=== PATIENT | female | born 1945 | race Caucasian/White ===

== ENCOUNTER 2017-03-12 11:50 | Emergency (ER) | payer MEDICARE, OTHER ==
[2017-03-12] MEDS ORDERED: HYDROMORPHONE HCL INJ/PF 2 MG/ML AMPULE IV ONE (13:12)
--- NOTE | 2017-03-12 13:17 | ER Document Report ---
ED Medical Screen (RME) - General Mode of Arrival: Ambulatory Information source: Patient TRAVEL OUTSIDE OF THE [place] IN LAST 30 DAYS: No - HPI Patient complains to provider of: abdominal pain Associated Symptoms: Other - See above <CRYSTAL HUTCHISON - Last Filed: 03/12/17 13:12> <PENNY GAXIOLA - Last Filed: 03/12/17 21:16> - General Chief Complaint: Abdominal Pain Stated Complaint: RIGHT SIDE PAIN Time Seen by Provider: 03/12/17 13:08 Notes: Patient presents with complaints of RLQ abdominal pain. Pt states that the pain began a month ago and has consistently worsened to the point that today she had to come in. Patient states she has diarrhea onset 3 days ago. Denies vomiting, blood in stool, and fever. Patient's last meal was this morning. Patient still has her appendix. (CRYSTAL HUTCHISON) - Related Data Allergies/Adverse Reactions: No Known Drug Allergies Allergy (Verified 03/12/17 12:49) Past Medical History - General Information source: Patient - Social History Cigarette use (# per day): No Chew tobacco use (# tins/day): No Frequency of alcohol use: None Drug Abuse: None Family history: Reviewed & Not Pertinent - Past Medical History Cardiac Medical History: Reports: Hx Coronary Artery Disease, Hx Hypercholesterolemia, Hx Hypertension Pulmonary Medical History: Reports: Hx Asthma Neurological Medical History: Reports: Hx Migraine Endocrine Medical History: Reports: Hx Diabetes Mellitus Type 2 GI Medical History: Reports: Hx Ulcer Musculoskeltal Medical History: Reports Hx Arthritis, Reports Hx Musculoskeletal Deformity, Reports Hx Musculoskeletal Trauma Psychiatric Medical History: Reports: Hx Anxiety Past Surgical History: Reports: Hx Genitourinary Surgery - bladder sling, Hx Oral Surgery, Hx Orthopedic Surgery - lt hip total replacement, Hx Urinary Tract Surgery - bladder sling - Immunizations Immunizations up to date: Yes Hx Diphtheria, Pertussis, Tetanus Vaccination: Yes <CRYSTAL HUTCHISON - Last Filed: 03/12/17 13:12> Review of Systems - Review of Systems Constitutional: denies: Fever EENT: No symptoms reported Cardiovascular: No symptoms reported Respiratory: No symptoms reported Gastrointestinal: See HPI, Abdominal pain, Diarrhea. denies: Vomiting Genitourinary: No symptoms reported Female Genitourinary: No symptoms reported Musculoskeletal: No symptoms reported Skin: No symptoms reported Hematologic/Lymphatic: No symptoms reported Neurological/Psychological: No symptoms reported -: Yes All other systems reviewed and negative <HUTCHISONCRYSTAL - Last Filed: 03/12/17 13:12> Physical Exam - Vital signs Interpretation: Normal - Respiratory Respiratory status: No respiratory distress - Cardiovascular Rhythm: Regular - Abdominal Tenderness: Tender - RLQ tender to palpation <CRYSTAL HUTCHISON - Last Filed: 03/12/17 13:12> Course - Laboratory Result Diagrams: 03/12/17 13:55 03/12/17 13:55 <PENNY GAXIOLA - Last Filed: 03/12/17 21:16> - Vital Signs Vital signs: Temp Pulse Resp BP Pulse Ox 97.5 F 56 L 16 143/55 H 95 03/12/17 16:59 03/12/17 16:59 03/12/17 16:59 03/12/17 16:59 03/12/17 16:59 - Laboratory Laboratory results interpreted by me: 03/12/17 13:55 WBC 11.4 H RDW 14.1 H Seg Neuts % (Manual) 28 L Band Neutrophils % 1 L Lymphocytes % (Manual) 47 H Abs Lymphs (Manual) 7.5 H Doctor's Discharge <CRYSTAL HUTCHISON - Last Filed: 03/12/17 13:12> <PENNY GAXIOLA - Last Filed: 03/12/17 21:16> - Discharge Clinical Impression: Abdominal pain Qualifiers: Abdominal location: right lower quadrant Qualified Code(s): R10.31 - Right lower quadrant pain Condition: Stable Disposition: HOME, SELF-CARE Additional Instructions: ABDOMINAL PAIN: There are many causes of abdominal pain. Pain can mean a serious problem requiring surgery (such as appendicitis). It can also be an innocent problem that goes away on its own (such as a viral infection). Often, time must pass to determine the cause of pain. The physician does not feel that hospitalization is necessary, at present. Things may change within the next 24 hours. Call the doctor or come back for re- examination if any problems occur, such as: (1) Pain that becomes more severe, steady, or becomes concentrated in one specific area. Also, pain that is more severe with movement or coughing. (2) Vomiting that persists or becomes more frequent. (3) Blood in the vomitus, urine, or bowel movements. Blood in the stool may have a tarry or black appearance. (4) Shaking chills or fever greater than 100 degrees F. (5) The abdomen becomes more distended or swollen. (6) Bowel movements cease. (7) Failure to improve as expected. NORMAL EXAM AND WORKUP: At this time, your examination and workup show no significant abnormality. No significant abnormal physical findings are noted. All laboratory, EKG, and imaging (x-ray, CT scans, ultrasound) studies that were ordered show no significant abnormality. Although your examination and all studies that were ordered showed no significant abnormal finding, there are no examinations and no studies that are 100% accurate. There is always the possibility that some abnormality could exist and not be detected with physical examination or within the limits and capabilities of laboratory and other studies. You should return or follow up as you were instructed on your visit today for further evaluation if your symptoms do not resolve. Your CT scan of your abdomen does not show your appendix. There are no inflammatory changes seen either. We do not think that you have appendicitis. You do have some gas in your lower right colon and the ascending colon to the liver which might be contributing to the pain you're experiencing. CONSTIPATION: Constipation is a common problem. It is especially likely as you get older. Constipation is a common cause of abdominal pain, but sometimes causes no symptoms at all. Causes of constipation include certain medications, dehydration, diets, inactivity, and low-fiber intake. Rarely, it can be a symptom of underlying disease. The physician has evaluated you for this. Avoid constipation by eating a diet high in fiber, fruits, and vegetables. Drink plenty of liquids. Get regular exercise. If possible, avoid constipating medicines like narcotic pain medication. Some vitamin tablets can cause constipation. Stool softeners may be needed for difficult cases. An excellent stool softener is Konsyl which is available at [employer], and [employer] drug store. Just add a teaspoon to a glass of pineapple or orange juice daily or twice a day if needed. Laxatives are useful for occasional constipation. You should use them only when necessary. Too-frequent use can make your bowels dependent on them. Some over the counter laxatives available without prescription are: Milk of Magnesia, 1-2 tablespoons twice a day Dulcolax, 5 mg pill or 10 mg suppository. Citrate of Magnesia, 4-5 ounces a day for a day or two For acute constipation, Fleet's Enemas and Dulcolax suppositories are helpful. Chronic, tile layer helper use of laxatives or enemas is not a good idea. Your bowel may become dependant on them. You do not need to have a bowel movement every day. Many people do fine with a bowel movement every three or four days. You should call your doctor or return for re-evaluation if you pass blood in the stool, or if you develop fever or increasing abdominal pain. BULK LAXATIVES: Bulk laxatives make the stool softer and bulkier. They're useful for preventing constipation. You can choose between psyllium, methylcellulose, and polycarbophil. They are available without a prescription. Psyllium brand names include Konsyl, Metamucil, Perdiem, Effer-Syllium and Hydrocil. It's available as powder, flavored drink powder, or chewable. The usual dose of psyllium powder is one heaping teaspoon in water each morning, increasing to twice a day if needed. [place] juice can disguise the slightly grainy texture. Methylcellulose is marketed as Citrucel and other brands. The average dose is two grams in a cup of water one to three times a day. Polycarbophil is marketed as Fiber-Con. Take two tablets with a cup of water one to three times a day. LAXATIVE: A laxative agent has been prescribed for your condition. This should result in passage of stool within 12 hours. Some mild intestinal cramping is common as the hard stool begins to move. You may have loose or runny stools for a short time. Contact your doctor if there is severe cramping, vomiting, or passage of blood. Return for further care if this medicine fails to improve your condition. FOLLOW-UP CARE: If you have been referred to a physician for follow-up care, call the physician s office for an appointment as you were instructed or within the next two days. If you experience worsening or a significant change in your symptoms, notify the physician immediately or return to the Emergency Department at any time for re-evaluation. I spoke with Dr. Mcgill and he will follow up with you about your pain to see if there is any other studies that can be ordered to try to find her what's causing the pain. Referrals: TEENA MCGILL MD [Primary Care Provider] - Follow up as needed Scribe Documentation - Scribe Written by Heber:: heber Hopkins, 03/12/17, 1317 acting as scribe for :: Sterling <CRYSTAL HUTCHISON - Last Filed: 03/12/17 13:12>
[2017-03-12 14:34] LABS: HEMATOCRIT 41.4 % (36.0-47.0); HEMOGLOBIN 13.4 g/dL (12.0-15.5); HGB HCT DIFFERENCE -1.2; MEAN CORPUSCULAR HEMOGLOBIN 30.1 pg (27.0-33.4); MEAN CORPUSCULAR HGB CONC 32.3 g/dL (32.0-36.0); MEAN CORPUSCULAR VOLUME 93 fl (80-97); RED BLOOD COUNT 4.45 10^6/uL (3.72-5.28); RED CELL DISTRIBUTION WIDTH 14.1 % (11.5-14.0); WHITE BLOOD COUNT 11.4 10^3/uL (4.0-10.5)
[2017-03-12 14:45] LABS: APPEARANCE,URINE CLEAR; BILIRUBIN,URINE NEGATIVE (NEGATIVE); GLUCOSE, URINE NEGATIVE (NEGATIVE); KETONES,URINE NEGATIVE (NEGATIVE); LEUKOCYTE ESTERASE,URINE NEGATIVE (NEGATIVE); NITRITE,URINE NEGATIVE (NEGATIVE); PROTEIN,URINE NEGATIVE (NEGATIVE); URINE SPECIFIC GRAVITY 1.009; UROBILINOGEN,URINE NEGATIVE mg/dL (<2.0)
[2017-03-12 14:46] LABS: ALANINE AMINOTRANSFERASE 27 U/L (9-52); ALBUMIN 4.6 g/dL (3.5-5.0); ALKALINE PHOSPHATASE 58 U/L (38-126); ANION GAP 11 (5-19); ASPARTATE AMINO TRANSFERASE 22 U/L (14-36); BILIRUBIN,DIRECT 0.4 mg/dL (0.0-0.4); BILIRUBIN,TOTAL 1.2 mg/dL (0.2-1.3); BLOOD UREA NITROGEN 14 mg/dL (7-20); CALCIUM 9.8 mg/dL (8.4-10.2); CARBON DIOXIDE 30 mmol/L (22-30); CHLORIDE 101 mmol/L (98-107); GLUCOSE 87 mg/dL (75-110); POTASSIUM 4.3 mmol/L (3.6-5.0); SODIUM 142.4 mmol/L (137-145); TOTAL PROTEIN 7.3 g/dL (6.3-8.2)
[2017-03-12 15:05] LABS: BAND NEUTROPHILS % (MANUAL) 1 % (3-5); BASOPHILS % (MANUAL) 0 % (0-2); EOSINOPHILS % (MANUAL) 2 % (0-6); LYMPHOCYTES % (MANUAL) 47 % (13-45); TOTAL CELLS COUNTED 100
[2017-03-12 15:06] LABS: OVALOCYTES SLIGHT; POIKILOCYTOSIS SLIGHT; POLYCHROMASIA SLIGHT
--- NOTE | 2017-03-12 16:52 | ER Document Report ---
ED GI/ - General Chief Complaint: Abdominal Pain Stated Complaint: RIGHT SIDE PAIN Time Seen by Provider: 03/12/17 13:08 Mode of Arrival: Ambulatory Notes: Patient is here because she's having pain in the right lower abdomen around to her back. She says this pain has been going on for the past 2 months. She says it's been getting worse and went to her private doctor's office today where she was very tender in the right lower quadrant and a center here to rule out possible appendicitis. Patient says her pain is constant and worse today. She's not had any nausea or vomiting. She's had a soft stool. No blood in her stools. She has noticed some burning with urination and frequently going to the bathroom to urinate. Has not noted any fever. Has had a hysterectomy but says she still has her appendix. TRAVEL OUTSIDE OF THE [place] IN LAST 30 DAYS: No - Related Data Allergies/Adverse Reactions: No Known Drug Allergies Allergy (Verified 03/12/17 12:49) Past Medical History - General Information source: Patient - Social History Smoking Status: Never Smoker Cigarette use (# per day): No Chew tobacco use (# tins/day): No Frequency of alcohol use: None Drug Abuse: None Family History: Reviewed & Not Pertinent, CAD, DM, Hyperlipidemia, Hypertension , Malignancy Patient has suicidal ideation: No Patient has homicidal ideation: No - Past Medical History Cardiac Medical History: Reports: Hx Coronary Artery Disease, Hx Hypercholesterolemia, Hx Hypertension Pulmonary Medical History: Reports: Hx Asthma Neurological Medical History: Reports: Hx Migraine Endocrine Medical History: Reports: Hx Diabetes Mellitus Type 2 GI Medical History: Reports: Hx Ulcer Musculoskeltal Medical History: Reports Hx Arthritis, Reports Hx Musculoskeletal Deformity, Reports Hx Musculoskeletal Trauma Psychiatric Medical History: Reports: Hx Anxiety Past Surgical History: Reports: Hx Genitourinary Surgery - bladder sling, Hx Oral Surgery, Hx Orthopedic Surgery - Bilateral hip total replacement, Hx Urinary Tract Surgery - bladder sling - Immunizations Immunizations up to date: Yes Hx Diphtheria, Pertussis, Tetanus Vaccination: Yes Hx Pneumococcal Vaccination: 09/02/15 Review of Systems - Review of Systems Notes: REVIEW OF SYSTEMS: CONSTITUTIONAL : Denies fever. EENT: Denies eye, ear, nose or mouth or throat pain or other symptoms. CARDIOVASCULAR: Denies chest pain. RESPIRATORY: Denies cough, chest congestion, or shortness of breath. GASTROINTESTINAL: See history of present illness. GENITOURINARY: Has urinary frequency and discomfort with urination, but no blood in urine. MUSCULOSKELETAL: Denies back or neck pain. Denies joint pain or swelling. SKIN: Denies rash or skin lesions. NEUROLOGICAL: Denies LOC or altered mental status. Denies headache. Denies sensory loss or motor deficits. ALL OTHER SYSTEMS REVIEWED AND NEGATIVE. Physical Exam - Vital signs Vitals: Temp Pulse Resp BP Pulse Ox 98.1 F 70 23 H 145/92 H 100 03/12/17 11:54 03/12/17 11:54 03/12/17 11:54 03/12/17 11:54 03/12/17 11:54 Interpretation: Normal - Notes Notes: PHYSICAL EXAMINATION: GENERAL: Well-appearing, in no acute distress. Vital signs are all essentially normal. Patient is much younger looking than her stated age of 72. HEAD: Atraumatic, normocephalic. EYES: Pupils equal round and reactive to light, extraocular movements intact. ENT: oropharynx clear without exudates. Moist mucous membranes. NECK: Normal range of motion, supple. LUNGS: Breath sounds clear and equal bilaterally. HEART: Regular rate and rhythm without murmurs. ABDOMEN: Soft, but very tender in the right lower quadrant and into the lateral right abdomen. Minimal right CVA percussion tenderness. No abdominal masses felt. No bruits heard. BACK: No tenderness throughout entire back. EXTREMITIES: Normal range of motion without pain. NEUROLOGICAL: Normal speech, normal gait. Normal sensory, motor, and reflex exams. Awake, alert, and oriented x3. Cranial nerves normal. PSYCH: Normal mood, normal affect. SKIN: Warm, dry, no rashes. Course - Vital Signs Vital signs: Temp Pulse Resp BP Pulse Ox 97.5 F 56 L 16 143/55 H 95 03/12/17 16:59 03/12/17 16:59 03/12/17 16:59 03/12/17 16:59 03/12/17 16:59 03/12/17 20:31 Blood work noted. Patient's predominance of lymphocytes noted. I called her primary care physician, Dr. Woods, and made him aware of the patient' s findings and told him I don't think she has appendicitis, even though she is tender in the right lower quadrant. Her total white count is hardly elevated and it is far predominated by lymphocytes. He agrees that he needs to follow that differential. He will follow her pains of as well. I've advised the patient that her findings do suggest some degree of constipation and have advised her on some means to try to move her bowels better. - Laboratory Result Diagrams: 03/12/17 13:55 03/12/17 13:55 Laboratory results interpreted by me: 03/12/17 13:55 WBC 11.4 H RDW 14.1 H Seg Neuts % (Manual) 28 L Band Neutrophils % 1 L Lymphocytes % (Manual) 47 H Abs Lymphs (Manual) 7.5 H - Diagnostic Test Radiology reviewed: Image reviewed, Reports reviewed - Patient's CT scan of the abdomen and pelvis with out contrast was unable to identify the appendix. There are no inflammatory changes noted in the right lower quadrant. There is a moderate amount of stool in the ascending colon and hepatic rupture. Discharge - Discharge Clinical Impression: Abdominal pain Qualifiers: Abdominal location: right lower quadrant Qualified Code(s): R10.31 - Right lower quadrant pain Condition: Stable Disposition: HOME, SELF-CARE Additional Instructions: ABDOMINAL PAIN: There are many causes of abdominal pain. Pain can mean a serious problem requiring surgery (such as appendicitis). It can also be an innocent problem that goes away on its own (such as a viral infection). Often, time must pass to determine the cause of pain. The physician does not feel that hospitalization is necessary, at present. Things may change within the next 24 hours. Call the doctor or come back for re- examination if any problems occur, such as: (1) Pain that becomes more severe, steady, or becomes concentrated in one specific area. Also, pain that is more severe with movement or coughing. (2) Vomiting that persists or becomes more frequent. (3) Blood in the vomitus, urine, or bowel movements. Blood in the stool may have a tarry or black appearance. (4) Shaking chills or fever greater than 100 degrees F. (5) The abdomen becomes more distended or swollen. (6) Bowel movements cease. (7) Failure to improve as expected. NORMAL EXAM AND WORKUP: At this time, your examination and workup show no significant abnormality. No significant abnormal physical findings are noted. All laboratory, EKG, and imaging (x-ray, CT scans, ultrasound) studies that were ordered show no significant abnormality. Although your examination and all studies that were ordered showed no significant abnormal finding, there are no examinations and no studies that are 100% accurate. There is always the possibility that some abnormality could exist and not be detected with physical examination or within the limits and capabilities of laboratory and other studies. You should return or follow up as you were instructed on your visit today for further evaluation if your symptoms do not resolve. Your CT scan of your abdomen does not show your appendix. There are no inflammatory changes seen either. We do not think that you have appendicitis. You do have some gas in your lower right colon and the ascending colon to the liver which might be contributing to the pain you're experiencing. CONSTIPATION: Constipation is a common problem. It is especially likely as you get older. Constipation is a common cause of abdominal pain, but sometimes causes no symptoms at all. Causes of constipation include certain medications, dehydration, diets, inactivity, and low-fiber intake. Rarely, it can be a symptom of underlying disease. The physician has evaluated you for this. Avoid constipation by eating a diet high in fiber, fruits, and vegetables. Drink plenty of liquids. Get regular exercise. If possible, avoid constipating medicines like narcotic pain medication. Some vitamin tablets can cause constipation. Stool softeners may be needed for difficult cases. An excellent stool softener is Konsyl which is available at [employer], [employer] drug store. Just add a teaspoon to a glass of pineapple or orange juice daily or twice a day if needed. Laxatives are useful for occasional constipation. You should use them only when necessary. Too-frequent use can make your bowels dependent on them. Some over the counter laxatives available without prescription are: Milk of Magnesia, 1-2 tablespoons twice a day Dulcolax, 5 mg pill or 10 mg suppository. Citrate of Magnesia, 4-5 ounces a day for a day or two For acute constipation, Fleet's Enemas and Dulcolax suppositories are helpful. Chronic, skilled nursing use of laxatives or enemas is not a good idea. Your bowel may become dependant on them. You do not need to have a bowel movement every day. Many people do fine with a bowel movement every three or four days. You should call your doctor or return for re-evaluation if you pass blood in the stool, or if you develop fever or increasing abdominal pain. BULK LAXATIVES: Bulk laxatives make the stool softer and bulkier. They're useful for preventing constipation. You can choose between psyllium, methylcellulose, and polycarbophil. They are available without a prescription. Psyllium brand names include Konsyl, Metamucil, Perdiem, Effer-Syllium and Hydrocil. It's available as powder, flavored drink powder, or chewable. The usual dose of psyllium powder is one heaping teaspoon in water each morning, increasing to twice a day if needed. Sharp juice can disguise the slightly grainy texture. Methylcellulose is marketed as Citrucel and other brands. The average dose is two grams in a cup of water one to three times a day. Polycarbophil is marketed as Fiber-Con. Take two tablets with a cup of water one to three times a day. LAXATIVE: A laxative agent has been prescribed for your condition. This should result in passage of stool within 12 hours. Some mild intestinal cramping is common as the hard stool begins to move. You may have loose or runny stools for a short time. Contact your doctor if there is severe cramping, vomiting, or passage of blood. Return for further care if this medicine fails to improve your condition. FOLLOW-UP CARE: If you have been referred to a physician for follow-up care, call the physician s office for an appointment as you were instructed or within the next two days. If you experience worsening or a significant change in your symptoms, notify the physician immediately or return to the Emergency Department at any time for re-evaluation. I spoke with Dr. Woods and he will follow up with you about your pain to see if there is any other studies that can be ordered to try to find her what's causing the pain. Referrals: TEENA WOODS MD [Primary Care Provider] - Follow up as needed
[2017-03-12 17:13] VITALS: BP 143/55
== END 2017-03-12 17:00 | disposition home or self-care (01) ==
LOC: ER 11:50
DX: R10.31 Right lower quadrant pain (principal)
CPT/HCPCS: 99284; 96374; 36415; 85025; 80053; 81001; 74177; J1170

== ENCOUNTER → 2017-04-23 | Outpatient (CLI) | payer MEDICARE, OTHER ==
[2017-04-23 09:47] LABS: Direct HDL 45 mg/dL (>40); MAGNESIUM 1.7 mg/dL (1.6-2.3); TRIGLYCERIDES 448 mg/dL (<150)
[2017-04-23 09:58] LABS: DIRECT LDL 77 mg/dL (<100)
== END ==
LOC: OD 08:00
PROVIDERS: ATTEND Internal Medicine Cardiovascular Disease
DX: E78.2 Mixed hyperlipidemia (principal); I10 Essential (primary) hypertension
CPT/HCPCS: 36415; 80061; 83735

== ENCOUNTER → 2017-05-27 | Outpatient (CLI) | payer MEDICARE, OTHER ==
--- NOTE | 2017-05-27 14:52 | WOMENS IMAGING REPORT ---
EXAM DESCRIPTION: BILAT SCREENING MAMMO W/CAD COMPLETED DATE/TIME: 05/27/2017 10:21 am REASON FOR STUDY: Z12.31, ROUTINE SCREENING MAMMO Z12.31 ENCNTR SCREEN MAMMOGRAM FOR MALIGNANT NEOP LASM OF MELISSA COMPARISON: 2009 to 2015 TECHNIQUE: Standard craniocaudal and mediolateral oblique views of each breast recorded using Y[employer]omarta l acquisition. LIMITATIONS: None. FINDINGS: No masses, calcifications or architectural distortion. No areas of suspicion. Read with the assistance of CAD. .[facility] - R2 Cenova Version 1.3 .[facility] Imaging - R2 Cenova Version 1.3 .[facility] - R2 Cenova Version 2.4 .[facility] [place] - R2 Cenova Version 2.4 .[facility]EDS AT THE [facility] - R2 Breakfast Supervisor Version 9.2 IMPRESSION: NORMAL MAMMOGRAM. BIRADS 1. BREAST DENSITY: c. The breasts are heterogeneously dense, which may obscure small masses. BIRAD: 1 NEGATIVE RECOMMENDATION: ROUTINE SCREENING COMMENT: The patient has been notified of the results by letter per SA requirements. Additional no tification policies are in place for contacting patient with suspicious or incomplete findings. Quality ID #[id number]: The [employer] recommends an annual screening mammogram for women aged 40 years or over. This facility utilizes a reminder system to ensure that all patients receive reminder letters, and/or direct phone calls for appointments. This includes reminders for routine scr eening mammograms, diagnostic mammograms, or other Breast Imaging Interventions when appropriate. Th is patient will be placed in the appropriate reminder system. The [employer] (ACR) has developed recommendations for screening MRI of the breast s in certain patient populations, to be used in conjunction with mammography. Breast MRI surveillanc e may be appropriate for women with more than 20% lifetime risk of developing breast cancer as deter mined by genetic testing, significant family history of the disease, or history of mantle radiation f or Hodgkins Disease. ACR Practice Guidelines 2008. TECHNICAL DOCUMENTATION: FINDING NUMBER: (1) ASSESSMENT: (1) JOB ID: [id number] [employer]- All Rights Reserved
== END ==
LOC: WI 09:46
PROVIDERS: ATTEND Internal Medicine
DX: Z12.31 Encounter for screening mammogram for malignant neoplasm of breast (principal)
CPT/HCPCS: 77067; G0202

== ENCOUNTER 2017-07-27 10:36 | Day surgery (SDC) | payer MEDICARE, OTHER ==
[~2017-07-27 10:36] MED LIST: PROPOFOL INJ 200 MG/20 ML VIAL IV ONE
--- NOTE | 2017-07-27 11:57 | Operative Report ---
Operative Report DATE OF SURGERY: 07/27/17 Operative Report: The risks, benefits and alternatives of the procedure including risks of bleeding, perforation requiring surgery are explained to the patient detail and informed consent was obtained. The patient was taken back to the endoscopy suite and placed in the left, lateral decubital position. A rectal examination is done which did not reveal any masses, tears or fissures. An Olympus videoscope was inserted into the patient's rectum. The scope was then carefully advanced all the way to the cecum. Cecum was identified by the usual anatomical landmarks including the ileocecal valve as well as the appendiceal office. Photodocumentation is obtained. Prep is good. Scope was then sequentially pulled back via the various segments of the colon including the ascending colon, hepatic flexure, transverse colon, splenic flexure, descending colon finding to the rectosigmoid portions of the colon. Retroflexion maneuvers performed. PREOPERATIVE DIAGNOSIS: Right lower quadrant discomfort, rule out ischemic colitis POSTOPERATIVE DIAGNOSIS: Normal colonoscopy, random right-sided colon biopsies obtained OPERATION: Colonoscopy with biopsy SURGEON: TIMOTHY STEWART ANESTHESIA: LMAC TISSUE REMOVED OR ALTERED: Mucosal specimens obtained. COMPLICATIONS: None. ESTIMATED BLOOD LOSS: None. INTRAOPERATIVE FINDINGS: No masses, AVMs, diverticulosis noted. PROCEDURE: Patient tolerated procedure well. No immediate postprocedure complications are noted. Patient discharged in good condition. Discharge date 07/27/2017. Discharge diet: Regular. Discharge activity: Regular. 2-3 week follow-up to discuss findings. Patient is instructed to call the office or proceed to the emergency room should there be any further problems or questions. We will wait on pathology.
[2017-07-27 12:13] VITALS: BP 136/65
== END 2017-07-27 12:35 | disposition home or self-care (01) ==
LOC: END 10:36
PROVIDERS: ATTEND Internal Medicine Gastroenterology
PROC: 0DBF8ZX Excision of Right Large Intestine, Via Natural or Artificial Opening Endoscopic, Diagnostic (ICD-10-PCS; principal; 2017-07-27 13:00)
DX: K52.9 Noninfective gastroenteritis and colitis, unspecified (principal); D50.9 Iron deficiency anemia, unspecified; E11.9 Type 2 diabetes mellitus without complications; I10 Essential (primary) hypertension; M19.90 Unspecified osteoarthritis, unspecified site; Z79.899 Other long term (current) drug therapy; Z79.84 Long term (current) use of oral hypoglycemic drugs; Z79.51 Long term (current) use of inhaled steroids
CPT/HCPCS: 45380; 82962; 88305 ×2; J2704; 810

== ENCOUNTER → 2017-11-30 | Outpatient (CLI) | payer MEDICARE, OTHER ==
--- NOTE | 2017-11-30 16:09 | RADIOLOGY REPORT (SQ) ---
EXAM DESCRIPTION: VOIDING CYSTOURETHROGRAM COMPLETED DATE/TIME: 11/30/2017 3:58 pm REASON FOR STUDY: R10.9 UNSPECIFIED ABDOMINAL PAIN L72.3 SEBACEOUS CYST R10.9 UNSPECIFIED ABDOMINA L PAIN COMPARISON: None. FLUOROSCOPY TIME: FLUORO TIME: 1 minutes 15 seconds 11 images saved to PACS. LIMITATIONS: None. 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 Urinary bladder catheterized with direct visual inspection using sterile technique. Bladder filled with approximately 350 ml of non-ionic contrast via gravity drip. FINDINGS: BLADDER: Normal in size and contour. No filling defects. URETHRA: Normal. No obstruction. LEFT URETER: No vesicoureteral reflux. RIGHT URETER: No vesicoureteral reflux. OTHER FINDINGS: No other abnormality noted in soft tissues or bone. POST VOID: Minimal contrast residual. OTHER: No other significant finding. IMPRESSION: Normal Voiding Cystourethrogram. COMMENT: Quality ID 145: Final reports for procedures using fluoroscopy that document radiation exp osure indices, or exposure time and number of fluorographic images (if radiation exposure indices are not available) TECHNICAL DOCUMENTATION: JOB ID: [id number] [employer]- All Rights Reserved
== END ==
LOC: RAD 15:41
PROVIDERS: ATTEND Urology
DX: R10.9 Unspecified abdominal pain (principal)
CPT/HCPCS: 74455

== ENCOUNTER → 2017-12-03 | Outpatient (CLI) | payer MEDICARE, OTHER ==
--- NOTE | 2017-12-03 09:16 | RADIOLOGY REPORT (SQ) ---
EXAM DESCRIPTION: CT ABD/PELVIS WITH IV ORAL COMPLETED DATE/TIME: 12/03/2017 8:58 am REASON FOR STUDY: UNSPECIFIED ABDOMINAL PAIN R10.9 UNSPECIFIED ABDOMINAL PAIN COMPARISON: PET-CT 08/03/2015 CT abdomen pelvis 12/21/2015, 03/12/2012 TECHNIQUE: CT scan of the abdomen and pelvis performed using helical scanning technique with dynamic intravenous contrast injection. Patient drank oral contrast. Images reviewed with lung, soft tissue , and bone windows. Reconstructed coronal and sagittal MPR images reviewed. Delayed images for evalua tion of the urinary system also acquired. All images stored on PACS. All CT scanners at this facility use dose modulation, iterative reconstruction, and/or weight based d osing when appropriate to reduce radiation dose to as low as reasonably achievable (ALARA). [facility]: Dose Right [facility]: CareDose [facility]: Dose Right [facility]: Teradose 4D [facility]: [employer] CONTRAST TYPE AND DOSE: contrast/concentration: Isovue 370.00 mg/ml; Total Contrast Delivered: 83.0 ml; Total Saline Delivered: 68.0 ml RENAL FUNCTION: Creatinine 0.7 RADIATION DOSE: CT Rad equipment meets quality standard of care and radiation dose reduction techniq ues were employed. CTDIvol: 8.5 - 9.3 mGy. DLP: 910 mGy-cm.. LIMITATIONS: Streak artifact over the pelvis from bilateral hip replacements FINDINGS: LOWER CHEST: No significant findings. No nodules or infiltrates. Small hiatal hernia LIVER: Normal size. No masses. No dilated ducts. SPLEEN: Normal size. No focal lesions. PANCREAS: No masses. No significant calcifications. No adjacent inflammation or peripancreatic fluid collections. Pancreatic duct not dilated. GALLBLADDER: No identified stones by CT criteria. No inflammatory changes to suggest cholecystitis. ADRENAL GLANDS: No significant masses or asymmetry. RIGHT KIDNEY AND URETER: No solid masses. No significant calcifications. No hydronephrosis or hyd roureter. LEFT KIDNEY AND URETER: No solid masses. No significant calcifications. No hydronephrosis or hydr oureter. AORTA AND VESSELS: No aneurysm. No dissection. Renal arteries, SMA, celiac without stenosis. RETROPERITONEUM: Small left para aortic lymph nodes are seen just inferior to the left renal vein, un changed from PET-CT 08/03/2015. These were non metabolic at that time. BOWEL AND PERITONEAL CAVITY: No masses or inflammatory changes. No free fluid or peritoneal masses. Oral contrast throughout the gastrointestinal tract without evidence of bowel obstruction APPENDIX: Not identified. There is streak artifact in the pelvis from bilateral hip replacements. PELVIS: Streak artifact from bilateral hip replacements. Post hysterectomy. No gross adenopathy or free fluid. Bladder not well seen. ABDOMINAL WALL: No masses. No hernias. BONES: Multilevel degenerative disc changes most pronounced at T12-L1 and L4-5. OTHER: No other significant finding. IMPRESSION: NO SIGNIFICANT OR ACUTE FINDING IN THE ABDOMEN OR PELVIS ON CT SCAN WITH IV CONTRAST. TECHNICAL DOCUMENTATION: JOB ID: [id number] Quality ID # [id number]: Final reports with documentation of one or more dose reduction techniques (e.g., Au tomated exposure control, adjustment of the mA and/or kV according to patient size, use of iterative reconstruction technique) 2010 [employer]- All Rights Reserved
== END ==
LOC: RAD 08:13
PROVIDERS: ATTEND Urology
DX: R10.9 Unspecified abdominal pain (principal)
CPT/HCPCS: 74177; 82565

== ENCOUNTER → 2017-12-11 | Outpatient (CLI) | payer MEDICARE, OTHER ==
[2017-12-11 09:44] LABS: ALANINE AMINOTRANSFERASE 26 U/L (9-52); ALBUMIN 4.5 g/dL (3.5-5.0); ALKALINE PHOSPHATASE 60 U/L (38-126); ANION GAP 10 (5-19); ASPARTATE AMINO TRANSFERASE 21 U/L (14-36); BILIRUBIN,DIRECT 0.3 mg/dL (0.0-0.4); BILIRUBIN,TOTAL 0.6 mg/dL (0.2-1.3); BLOOD UREA NITROGEN 14 mg/dL (7-20); CALCIUM 9.5 mg/dL (8.4-10.2); CARBON DIOXIDE 28 mmol/L (22-30); CHLORIDE 105 mmol/L (98-107); CHOLESTEROL 171.17 mg/dL (0-200); GLUCOSE 117 mg/dL (75-110); MAGNESIUM 1.9 mg/dL (1.6-2.3); POTASSIUM 4.7 mmol/L (3.6-5.0); TOTAL PROTEIN 6.9 g/dL (6.3-8.2); TRIGLYCERIDES 245 mg/dL (<150)
[2017-12-11 09:55] LABS: DIRECT LDL 83 mg/dL (<100)
== END ==
LOC: OD 08:31
PROVIDERS: ATTEND Internal Medicine Cardiovascular Disease
DX: E83.42 Hypomagnesemia (principal); E78.2 Mixed hyperlipidemia; I10 Essential (primary) hypertension; Z79.899 Other long term (current) drug therapy
CPT/HCPCS: 36415; 80048; 80061; 80076; 83735

== ENCOUNTER → 2018-06-03 | Outpatient (CLI) | payer MEDICARE, OTHER ==
--- NOTE | 2018-06-03 13:10 | WOMENS IMAGING REPORT ---
EXAM DESCRIPTION: 3D SCREENING MAMMO BILAT COMPLETED DATE/TIME: 06/03/2018 12:43 pm REASON FOR STUDY: SCREENING MAMMO Z12.31 ENCNTR SCREEN MAMMOGRAM FOR MALIGNANT NEOPLASM OF MELISSA COMPARISON: Multiple since 2008 TECHNIQUE: Standard craniocaudal and mediolateral oblique views of each breast recorded using digita l acquisition and breast tomosynthesis. LIMITATIONS: None. FINDINGS: No masses, calcifications or architectural distortion. No areas of suspicion. Read with the assistance of CAD. .[facility] - R2 Cenova Version 1.3 .[facility] - R2 Cenova Version 1.3 .[facility] - R2 Cenova Version 2.4 .[facility] - R2 Cenova Version 2.4 .[facility] - R2 [employer]er Version 9.2 IMPRESSION: NORMAL MAMMOGRAM. BIRADS 1. BREAST DENSITY: b. There are scattered areas of fibroglandular density. BIRAD: 1 NEGATIVE RECOMMENDATION: ROUTINE SCREENING Please continue yearly bilateral screening tomosynthesis in June 2019 COMMENT: The patient has been notified of the results by letter per MQSA requirements. Additional no tification policies are in place for contacting patient with suspicious or incomplete findings. Quality ID #225: The [employer] recommends an annual screening mammogram for women aged 40 years or over. This facility utilizes a reminder system to ensure that all patients receive reminder letters, and/or direct phone calls for appointments. This includes reminders for routine scr eening mammograms, diagnostic mammograms, or other Breast Imaging Interventions when appropriate. Th is patient will be placed in the appropriate reminder system. The [employer] (ACR) has developed recommendations for screening MRI of the breast s in certain patient populations, to be used in conjunction with mammography. Breast MRI surveillanc e may be appropriate for women with more than 20% lifetime risk of developing breast cancer as deter mined by genetic testing, significant family history of the disease, or history of mantle radiation f or Hodgkins Disease. ACR Practice Guidelines 2008. DBT Technology DBT is a type of tomographic mammography. With conventional mammography, overlapping breast tissue ma y make lesions difficult to detect, even with good compression. DBT uses an x-ray tube that rotates a round the breast, taking images at different angles. These images are then combined to create thin sl ices of the breast that the radiologist can view as a 3D reconstruction. The Fenergo unit can perform full-field digital mammograms (2D imaging); or DBT (3D imaging); or both, in a combination mode that quickly performs both the mammogram and the tomosynthesis scan while the breast is still compressed. PQRS 6045F: Fluoroscopic imaging is not utilized for breast tomosynthesis. TECHNICAL DOCUMENTATION: FINDING NUMBER: (1) ASSESSMENT: (1) JOB ID: [id number] [employer]- All Rights Reserved Reading location - IP/workstation name: [email or web address]
== END ==
LOC: WI 11:15
PROVIDERS: ATTEND Internal Medicine
DX: Z12.31 Encounter for screening mammogram for malignant neoplasm of breast (principal)
CPT/HCPCS: 77063; 77067

== ENCOUNTER → 2018-08-16 | Outpatient (CLI) | payer MEDICARE, OTHER ==
--- NOTE | 2018-08-16 11:51 | RADIOLOGY REPORT (SQ) ---
EXAM DESCRIPTION: CAROTID DOPPLER COMPLETED DATE/TIME: 08/16/2018 11:20 am REASON FOR STUDY: BRUIT R09.89 OTH SYMPTOMS AND SIGNS INVOLVING THE CIRC AND RESP SY COMPARISON: CT brain 10/03/2015 TECHNIQUE: Grayscale ultrasound, Doppler velocity and spectra, and color Doppler images acquired of the extra-cranial carotid and vertebral arteries. Images stored on PACS. LIMITATIONS: None. FINDINGS: RIGHT CAROTID CCA Velocities: Within normal limits. Peak systolic velocity 0.9 m/sec ICA Velocities Peak systolic 1.1 m/s. End diastolic 0.23 m/s. Proximal ICA/CCA peak systolic ratio normal. Spectra normal. No significant plaque. LEFT CAROTID CCA Velocities: Within normal limits. Peak systolic velocity 1.2 m/sec ICA Velocities Peak systolic 0.66 m/s. End diastolic 0.18 m/s. Proximal ICA/CCA peak systolic ratio normal. Spectra normal. No significant plaque. VERTEBRAL ARTERIES: Antegrade flow. Normal waveforms. SUBCLAVIAN ARTERIES: Not evaluated OTHER: No other significant finding. IMPRESSION: NO HEMODYNAMICALLY SIGNIFICANT STENOSIS. COMMENT: Quality ID #195: Velocity criteria are extrapolated from the diameter data as defined by t he Society of Radiologists in Ultrasound Consensus Conference. Radiology 2003: 229; 340-346. TECHNICAL DOCUMENTATION: JOB ID: [id number] [employer]- All Rights Reserved Reading location - IP/workstation name: [email or web address]
== END ==
LOC: SP 09:46
PROVIDERS: ATTEND Physician Assistant
DX: R09.89 Other specified symptoms and signs involving the circulatory and respiratory systems (principal)
CPT/HCPCS: 93880

== ENCOUNTER → 2018-12-15 | Outpatient (CLI) | payer MEDICARE, OTHER ==
[2018-12-15 09:16] LABS: ALANINE AMINOTRANSFERASE 38 U/L (9-52); ALBUMIN 4.7 g/dL (3.5-5.0); ALKALINE PHOSPHATASE 61 U/L (38-126); ANION GAP 9 (5-19); ASPARTATE AMINO TRANSFERASE 35 U/L (14-36); BILIRUBIN,DIRECT 0.2 mg/dL (0.0-0.4); BILIRUBIN,TOTAL 0.5 mg/dL (0.2-1.3); BLOOD UREA NITROGEN 15 mg/dL (7-20); CALCIUM 9.4 mg/dL (8.4-10.2); CARBON DIOXIDE 27 mmol/L (22-30); CHLORIDE 107 mmol/L (98-107); GLUCOSE 121 mg/dL (75-110); POTASSIUM 4.7 mmol/L (3.6-5.0); SODIUM 142.6 mmol/L (137-145); TOTAL PROTEIN 6.7 g/dL (6.3-8.2); TRIGLYCERIDES 179 mg/dL (<150)
[2018-12-15 09:17] LABS: CHOLESTEROL 155.21 mg/dL (0-200)
[2018-12-15 09:28] LABS: DIRECT LDL 84 mg/dL (<100)
[2018-12-15 09:33] LABS: VLDL CHOLESTEROL 35.8 mg/dL (10-31)
== END ==
LOC: LAB 08:45
PROVIDERS: ATTEND Internal Medicine Cardiovascular Disease
DX: E78.2 Mixed hyperlipidemia (principal); Z79.899 Other long term (current) drug therapy; I10 Essential (primary) hypertension
CPT/HCPCS: 36415; 80048; 80061; 80076; 83735

== ENCOUNTER → 2019-01-25 | Outpatient (CLI) | payer MEDICARE, OTHER ==
[2019-01-25 11:01] LABS: ALANINE AMINOTRANSFERASE 32 U/L (9-52); ALBUMIN 4.4 g/dL (3.5-5.0); ALKALINE PHOSPHATASE 55 U/L (38-126); ASPARTATE AMINO TRANSFERASE 28 U/L (14-36); BILIRUBIN,DIRECT 0.2 mg/dL (0.0-0.4); BILIRUBIN,TOTAL 0.9 mg/dL (0.2-1.3); CHOLESTEROL 126.58 mg/dL (0-200); TOTAL PROTEIN 6.7 g/dL (6.3-8.2); TRIGLYCERIDES 100 mg/dL (<150)
[2019-01-25 11:12] LABS: DIRECT LDL 62 mg/dL (<100)
== END ==
LOC: LAB 10:10
PROVIDERS: ATTEND Physician Assistant
DX: E78.2 Mixed hyperlipidemia (principal); Z79.899 Other long term (current) drug therapy
CPT/HCPCS: 36415; 80061; 80076

== ENCOUNTER → 2019-01-30 | Outpatient (CLI) | payer MEDICARE, OTHER ==
--- NOTE | 2019-01-31 13:52 | RADIOLOGY REPORT (SQ) ---
EXAM DESCRIPTION: PET CT SKULL/THIGH COMPLETED DATE/TIME: 01/30/2019 8:16 pm REASON FOR STUDY: C91.10 CHRONIC LYMPHOCYTIC LEUK OF B-CELL TYPE NOT ACHIEVE REMIS C91.10 CHRONIC L YMPHOCYTIC LEUK OF B-CELL TYPE NOT ACHIEVE R COMPARISON: PET-CT 08/03/2015 CT abdomen pelvis 08/20/2016, 03/12/2017, 12/03/2017 RADIONUCLIDE AND DOSE: 11.9 mCi F18 FDG The route of agent administration: Intravenous FASTING BLOOD SUGAR: 95 mg/dl CONTRAST TYPE AND DOSE: No CT contrast given. TECHNIQUE: Blood glucose level was verified. Above dose of FDG was injected intravenously. 2-D seg mented attenuation correction images were obtained from the base of the skull to the midthighs. Nonc ontrast CT images were obtained for attenuation correction and fusion with emission images. CT image s were performed without oral or intravenous contrast and are not sensitive for parenchymal lesions. A series of overlapping emission PET images were obtained. Images reviewed and manipulated at [facility] [employer] Mobile work station by the radiologist. Images stored on PACS. LIMITATIONS: None. FINDINGS: HEAD AND NECK: No areas of abnormal metabolic activity in the soft tissues of the head and neck. CHEST: No areas of abnormal metabolic activity in the chest. ABDOMEN AND PELVIS: No areas of abnormal metabolic activity in the abdomen or pelvis. Expected physi ologic activity is present in the genitourinary system and bowel. PROXIMAL LOWER EXTREMITIES: No areas of abnormal metabolic activity in the soft tissues of the lower extremities. BONES: No abnormal metabolic activity in the visualized skeleton. ADDITIONAL CT FINDINGS: Streak artifact through the pelvis from bilateral total hip replacements. Po st hysterectomy. OTHER: Liver background activity 2.3 SUV. Blood pool background activity 1.9 SUV IMPRESSION: No hypermetabolic lesions are identified. No hypermetabolic adenopathy. TECHNICAL DOCUMENTATION: JOB ID: [id number] [employer]- All Rights Reserved Reading location - IP/workstation name: [email or web address]
== END ==
LOC: RAD 17:31
PROVIDERS: ATTEND Internal Medicine Medical Oncology
DX: C91.10 Chronic lymphocytic leukemia of B-cell type not having achieved remission (principal)
CPT/HCPCS: 78815; A9552

== ENCOUNTER → 2019-05-09 | Outpatient (CLI) | payer MEDICARE, OTHER ==
[2019-05-09 09:37] LABS: ALANINE AMINOTRANSFERASE 21 U/L (9-52); ALBUMIN 4.1 g/dL (3.5-5.0); ALKALINE PHOSPHATASE 64 U/L (38-126); ANION GAP 7 (5-19); ASPARTATE AMINO TRANSFERASE 31 U/L (14-36); BILIRUBIN,DIRECT 0.3 mg/dL (0.0-0.4); BILIRUBIN,TOTAL 0.6 mg/dL (0.2-1.3); BLOOD UREA NITROGEN 24 mg/dL (7-20); CALCIUM 8.9 mg/dL (8.4-10.2); CARBON DIOXIDE 26 mmol/L (22-30); CHLORIDE 108 mmol/L (98-107); CHOLESTEROL 132.61 mg/dL (0-200); GLUCOSE 102 mg/dL (75-110); POTASSIUM 4.4 mmol/L (3.6-5.0); SODIUM 140.5 mmol/L (137-145); TOTAL PROTEIN 6.3 g/dL (6.3-8.2); TRIGLYCERIDES 103 mg/dL (<150)
[2019-05-09 09:48] LABS: DIRECT LDL 66 mg/dL (<100)
== END ==
LOC: LAB 08:40
PROVIDERS: ATTEND Internal Medicine Cardiovascular Disease
DX: E78.2 Mixed hyperlipidemia (principal); I10 Essential (primary) hypertension; E83.42 Hypomagnesemia; Z79.899 Other long term (current) drug therapy
CPT/HCPCS: 36415; 80048; 80061; 80076; 83735

== ENCOUNTER → 2019-07-01 | Outpatient (CLI) | payer MEDICARE, OTHER ==
--- NOTE | 2019-07-01 15:23 | WOMENS IMAGING REPORT ---
EXAM DESCRIPTION: 3D SCREENING MAMMO BILAT COMPLETED DATE/TIME: 07/01/2019 1:47 pm REASON FOR STUDY: Z12.31 SCREENING MAMMO Z12.31 ENCNTR SCREEN MAMMOGRAM FOR MALIGNANT NEOPLASM OF B RE COMPARISON: Multiple since 2008 EXAM PARAMETERS: Views: Standard craniocaudal and mediolateral oblique views of each breast recorded using digital acquisition and breast tomosynthesis. Read with the assistance of CAD. .[facility] - [employer]immer Version 9.2 LIMITATIONS: None. FINDINGS: No suspicious masses, suspicious calcifications or architectural distortion. No areas of c oncern. IMPRESSION: NEGATIVE MAMMOGRAM. BIRADS 1. BREAST DENSITY: b. There are scattered areas of fibroglandular density. BIRAD: ASSESSMENT: 1 NEGATIVE RECOMMENDATION: ROUTINE SCREENING COMMENT: The patient has been notified of the results by letter per MQSA requirements. Additional no tification policies are in place for contacting patient with suspicious or incomplete findings. Quality ID #225: The [employer] recommends an annual screening mammogram for women aged 40 years or over. This facility utilizes a reminder system to ensure that all patients receive reminder letters, and/or direct phone calls for appointments. This includes reminders for routine scr eening mammograms, diagnostic mammograms, or other Breast Imaging Interventions when appropriate. Th is patient will be placed in the appropriate reminder system. TECHNICAL DOCUMENTATION: FINDING NUMBER: (1) ASSESSMENT: (1) JOB ID: [id number] [employer]- All Rights Reserved Reading location - IP/workstation name: [email or web address]
== END ==
LOC: WI 13:15
PROVIDERS: ATTEND Internal Medicine
DX: Z12.31 Encounter for screening mammogram for malignant neoplasm of breast (principal)
CPT/HCPCS: 77063; 77067

== ENCOUNTER → 2019-09-28 | Outpatient (CLI) | payer MEDICARE, OTHER ==
[2019-09-28 08:40] LABS: ALBUMIN 4.6 g/dL (3.5-5.0); ALKALINE PHOSPHATASE 45 U/L (38-126); ASPARTATE AMINO TRANSFERASE 25 U/L (14-36); BILIRUBIN,TOTAL 1.1 mg/dL (0.2-1.3); CHOLESTEROL 162.96 mg/dL (0-200); TOTAL PROTEIN 7.1 g/dL (6.3-8.2); TRIGLYCERIDES 128 mg/dL (<150)
[2019-09-28 08:51] LABS: DIRECT LDL 79 mg/dL (<100)
== END ==
LOC: LAB 08:05
PROVIDERS: ATTEND Internal Medicine Cardiovascular Disease
DX: E78.2 Mixed hyperlipidemia (principal); E83.42 Hypomagnesemia; Z79.899 Other long term (current) drug therapy
CPT/HCPCS: 36415; 80061; 80076; 83735

== ENCOUNTER 2019-11-25 07:32 | Day surgery (SDC) | payer MEDICARE, OTHER ==
[2019-11-25] MEDS ORDERED: PROPOFOL INJ 200 MG/20 ML VIAL IV ONE (07:43)
[2019-11-25] MEDS ORDERED: LIDOCAINE 2% INJ-PF (20 MG/ML) 10 ML AMPUL ONE (07:43)
[2019-11-25 09:39] VITALS: BP 147/72
--- NOTE | 2019-11-25 12:05 | Operative Report ---
Operative Report DATE OF SURGERY: 11/25/19 Operative Report: The risks, benefits and alternatives of the procedure including the risk of bleeding, perforation requiring surgery have been explained to the patient in detail and informed consent has been obtained. Patient is taken back to the endoscopy suite and placed in the left, lateral decubital position. Timeout was called. Propofol medication is administered. Rectal examination is done which did not reveal any masses, tears or fissures. An Olympus videoscope was introduced into the patient's rectum. The scope was then carefully advanced all the way to the cecum. The cecum was identified by the usual anatomical landmarks including the ileocecal valve as well as the appendiceal office. Photodocumentation is obtained. Scope was then sequentially pulled back via the various segments of the colon including the ascending colon, hepatic flexure, transverse colon, splenic flexure, descending colon and finally into the rectosigmoid portions of the colon. Retroflexion maneuver is performed. The risks benefits and alternatives of the procedure explained to the patient in detail and informed consent is obtained.A GIF Olympus video scope was inserted into the patient's mouth and hypopharynx ,the esophagus is identified intubated and insufflated ,the scope was then advanced through the esophagus stomach and duodenum, retroflexion maneuver is done ,the esophagus stomach and first and second portions of the duodenum examined PREOPERATIVE DIAGNOSIS: Dyspepsia, epigastric pain abdominal bloating. Change in bowel habits POSTOPERATIVE DIAGNOSIS: Cecal polyp removed via biopsy forceps. Right colon inflammation rule out collagenous colitis. Internal hemorrhoids. Gastritis status post biopsy without Helicobacter pylori OPERATION: Colonoscopy with biopsy. EGD with biopsy SURGEON: TIMOTHY STEWART ANESTHESIA: LMAC TISSUE REMOVED OR ALTERED: As noted above. COMPLICATIONS: None. ESTIMATED BLOOD LOSS: None. INTRAOPERATIVE FINDINGS: As noted above. PROCEDURE: Patient tolerated the procedure well. No immediate postprocedure complications are noted. Patient is discharged in good condition. Discharge date 11/25/2019. Discharge diet: Regular. Discharge activity: Regular. 2 to 3-week follow-up to discuss findings. Patient is instructed to call the office or proceed to the emergency room should there be any further problems or questions. 3 to 5-year surveillance colonoscopy.
== END 2019-11-25 09:50 | disposition home or self-care (01) ==
LOC: END 07:32
PROVIDERS: ATTEND Internal Medicine Gastroenterology
DX: Z12.11 Encounter for screening for malignant neoplasm of colon (principal); D12.0 Benign neoplasm of cecum; K52.9 Noninfective gastroenteritis and colitis, unspecified; K64.8 Other hemorrhoids; Z86.010 Personal history of colon polyps; R68.81 Early satiety; D50.9 Iron deficiency anemia, unspecified; J45.909 Unspecified asthma, uncomplicated; E11.9 Type 2 diabetes mellitus without complications; I10 Essential (primary) hypertension; Z79.899 Other long term (current) drug therapy; Z79.84 Long term (current) use of oral hypoglycemic drugs; Z79.51 Long term (current) use of inhaled steroids; Z79.82 Long term (current) use of aspirin
CPT/HCPCS: 43239; 45380; 82962; 88305 ×2; 00813; J2704; J3490; 813

== ENCOUNTER 2019-12-12 09:03 | Emergency (ER) | payer MEDICARE, OTHER ==
[2019-12-12] MEDS ORDERED: ASPIRIN 81 MG TABLET, CHEWABLE PO ONE (09:50)
[2019-12-12] MEDS ORDERED: ONDANSETRON 4 MG TAB.RAPDIS PO ONE (09:51)
--- NOTE | 2019-12-12 09:53 | ER Document Report ---
ED Medical Screen (RME) - General Chief Complaint: Urinary Problem Stated Complaint: LOWER BACK PAIN/URINARY PROBLEM Time Seen by Provider: 12/12/19 09:47 Primary Care Provider: GINETTE TEMPLE PA-C [Primary Care Provider] - Follow up as needed Information source: Patient Notes: Patient presents complaining of low back pain that radiates around to the lateral sides. Patient reports urinary frequency and some incontinence. Patient also reports left side pain chest and abdominal tenderness for the past 10 days as well. Patient reports feeling dehydrated. Patient complains of nausea. Patient states she will occasionally break out in sweats. Patient does report a history of hypertension and diabetes. I have greeted and performed a rapid initial assessment of this patient. A comprehensive ED assessment and evaluation of the patient, analysis of test results and completion of the medical decision making process will be conducted by additional ED providers. TRAVEL OUTSIDE OF THE [place] IN LAST 30 DAYS: No COUNTRY TRAVELED TO/FROM: [facility] - Related Data Allergies/Adverse Reactions: No Known Drug Allergies Allergy (Verified 12/12/19 09:46) Past Medical History - Social History Frequency of alcohol use: None Drug Abuse: None Family history: Reviewed & Not Pertinent - Past Medical History Cardiac Medical History: Reports: Hx Coronary Artery Disease, Hx Hypercholesterolemia, Hx Hypertension Denies: Hx Heart Attack Pulmonary Medical History: Reports: Hx Asthma Denies: Hx Bronchitis, Hx COPD, Hx Pneumonia Neurological Medical History: Reports: Hx Migraine. Denies: Hx Cerebrovascular Accident, Hx Seizures Endocrine Medical History: Reports: Hx Diabetes Mellitus Type 2 Renal/ Medical History: Denies: Hx Peritoneal Dialysis GI Medical History: Reports: Hx Ulcer Musculoskeltal Medical History: Reports Hx Arthritis, Reports Hx Musculoskeletal Deformity, Reports Hx Musculoskeletal Trauma Psychiatric Medical History: Reports: Hx Anxiety Past Surgical History: Reports: Hx Genitourinary Surgery - bladder sling, Hx Oral Surgery, Hx Orthopedic Surgery - Bilateral hip total replacement, Hx Urinary Tract Surgery - bladder sling - Immunizations Immunizations up to date: Yes Hx Diphtheria, Pertussis, Tetanus Vaccination: Yes Physical Exam - Vital signs Vitals: Temp Pulse Resp BP Pulse Ox 97.8 F 73 16 138/109 H 100 12/12/19 09:10 12/12/19 09:10 12/12/19 09:10 12/12/19 09:10 12/12/19 09:10 - General General appearance: Alert Notes: Bilateral CVA tenderness, left lateral chest wall tenderness Course - Vital Signs Vital signs: Temp Pulse Resp BP Pulse Ox 97.8 F 73 16 138/109 H 100 12/12/19 09:10 12/12/19 09:10 12/12/19 09:10 12/12/19 09:10 12/12/19 09:10 Doctor's Discharge - Discharge Referrals: GINETTE TEMPLE PA-C [Primary Care Provider] - Follow up as needed
[2019-12-12 10:24] LABS: APPEARANCE,URINE CLEAR; BILIRUBIN,URINE NEGATIVE (NEGATIVE); COLOR,URINE YELLOW; GLUCOSE, URINE NEGATIVE (NEGATIVE); KETONES,URINE NEGATIVE (NEGATIVE); LEUKOCYTE ESTERASE,URINE NEGATIVE (NEGATIVE); NITRITE,URINE NEGATIVE (NEGATIVE); PROTEIN,URINE NEGATIVE (NEGATIVE); URINE SPECIFIC GRAVITY 1.018; UROBILINOGEN,URINE NEGATIVE mg/dL (<2.0)
[2019-12-12 10:25] LABS: HEMATOCRIT 38.5 % (36.0-47.0); HEMOGLOBIN 12.9 g/dL (12.0-15.5); MEAN CORPUSCULAR HEMOGLOBIN 31.5 pg (27.0-33.4); MEAN CORPUSCULAR HGB CONC 33.6 g/dL (32.0-36.0); MEAN CORPUSCULAR VOLUME 94 fl (80-97); PLATELET COUNT 221 10^3/uL (150-450); RED CELL DISTRIBUTION WIDTH 14.3 % (11.5-14.0); WHITE BLOOD COUNT 9.8 10^3/uL (4.0-10.5)
--- NOTE | 2019-12-12 10:31 | RADIOLOGY REPORT (SQ) ---
EXAM DESCRIPTION: CHEST 2 VIEWS COMPLETED DATE/TIME: 12/12/2019 10:18 am REASON FOR STUDY: L side pain COMPARISON: PA and lateral views of the chest from 11/30/2008 EXAM PARAMETERS: NUMBER OF VIEWS: Two views. TECHNIQUE: PA and lateral views of the chest were obtained.. RADIATION DOSE: NA LIMITATIONS: none FINDINGS: LUNGS AND PLEURA: No consolidation, pleural effusion or pneumothorax. MEDIASTINUM AND HILAR STRUCTURES: No mediastinal or hilar contour abnormality. HEART AND VASCULAR STRUCTURES: The cardiac silhouette and pulmonary vasculature are within normal dickens its. BONES: No acute findings. HARDWARE: None in the chest. OTHER: No other finding. IMPRESSION: No acute cardiopulmonary process. TECHNICAL DOCUMENTATION: JOB ID: [id number] 2011 [employer]- All Rights Reserved Reading location - IP/workstation name: [email or web address]
[2019-12-12 10:50] LABS: ALBUMIN 4.2 g/dL (3.5-5.0); ALKALINE PHOSPHATASE 46 U/L (38-126); ANION GAP 7 (5-19); ASPARTATE AMINO TRANSFERASE 28 U/L (14-36); BILIRUBIN,TOTAL 0.6 mg/dL (0.2-1.3); BLOOD UREA NITROGEN 16 mg/dL (7-20); CALCIUM 9.2 mg/dL (8.4-10.2); CARBON DIOXIDE 28 mmol/L (22-30); CHLORIDE 105 mmol/L (98-107); GLUCOSE 110 mg/dL (75-110); POTASSIUM 4.7 mmol/L (3.6-5.0); TOTAL PROTEIN 6.3 g/dL (6.3-8.2)
--- NOTE | 2019-12-12 11:05 | ER Document Report ---
ED GI/ - General Chief Complaint: Urinary Problem Stated Complaint: LOWER BACK PAIN/URINARY PROBLEM Time Seen by Provider: 12/12/19 09:47 Primary Care Provider: GINETTE TEMPLE PA-C [Primary Care Provider] - Follow up as needed Notes: HPI: 74-year-old female who presents today stating around 10 days ago she had some increased urination with some bilateral lower back pain. She denies any fevers or vomiting. She denies any incontinence. She denies any weakness of her legs. She states some diarrhea and dysuria. No blood in the diarrhea. No vomiting. No trauma to the back. Patient does do a lot of lifting doing daily tasks. No history of kidney stones. Patient had no complaints on repeat examination and questioning of the chest with a nonproductive cough consistent with her baseline COPD. ROS: See HPI All other review of systems reviewed and otherwise negative Reviewed vital signs and nursing note as charted by RN. PHYSICAL EXAM: CONSTITUTIONAL: Alert and oriented and responds appropriately to questions. Well-appearing; well-nourished HEAD: Normocephalic; atraumatic EYES: PERRL; Conjunctivae clear, sclerae non-icteric ENT: Normal nose; no rhinorrhea; moist mucous membranes; pharynx without lesions noted NECK: Supple without meningismus; non-tender; no cervical lymphadenopathy, no masses CARD: Regular rate and rhythm; no murmurs; symmetric distal pulses RESP: Normal chest excursion without splinting or tachypnea; breath sounds clear and equal bilaterally; no wheezes, no rhonchi, no rales ABD/GI: Normal bowel sounds; non-distended; soft, non-tender to deep palpation o f all 4 quadrants of the abdomen; no palpable organomegaly or masses BACK: The back appears normal and is non-tender to palpation along the midline spine with some paraspinal muscular tenderness present bilaterally EXT: Normal ROM in all joints; non-tender to palpation; no edema SKIN: No acute lesions noted NEURO: CN 2-12 intact; 5/5 bilateral upper and lower extremity strength with sensation intact to light touch; normal 2+ patellar reflexes PSYCH: The patient's mood and manner are appropriate. Grooming and personal hygiene are appropriate. TRAVEL OUTSIDE OF THE [place] IN LAST 30 DAYS: No COUNTRY TRAVELED TO/FROM: [place] - Related Data Allergies/Adverse Reactions: No Known Drug Allergies Allergy (Verified 12/12/19 09:46) Past Medical History - General Information source: Patient - Social History Smoking Status: Former Smoker Frequency of alcohol use: None Drug Abuse: None Family History: Reviewed & Not Pertinent, CAD, DM, Hyperlipidemia, Hypertension, Malignancy Patient has suicidal ideation: No Patient has homicidal ideation: No - Past Medical History Cardiac Medical History: Reports: Hx Coronary Artery Disease, Hx Hypercholesterolemia, Hx Hypertension Denies: Hx Heart Attack Pulmonary Medical History: Reports: Hx Asthma Denies: Hx Bronchitis, Hx COPD, Hx Pneumonia Neurological Medical History: Reports: Hx Migraine. Denies: Hx Cerebrovascular Accident, Hx Seizures Endocrine Medical History: Reports: Hx Diabetes Mellitus Type 2 Renal/ Medical History: Denies: Hx Peritoneal Dialysis GI Medical History: Reports: Hx Ulcer Musculoskeletal Medical History: Reports Hx Arthritis, Reports Hx Musculoskeletal Deformity, Reports Hx Musculoskeletal Trauma Psychiatric Medical History: Reports: Hx Anxiety Past Surgical History: Reports: Hx Genitourinary Surgery - bladder sling, Hx Oral Surgery, Hx Orthopedic Surgery - Bilateral hip total replacement, Hx Urinary Tract Surgery - bladder sling - Immunizations Immunizations up to date: Yes Hx Diphtheria, Pertussis, Tetanus Vaccination: Yes Hx Pneumococcal Vaccination: 09/02/15 Physical Exam - Vital signs Vitals: Temp Pulse Resp BP Pulse Ox 97.8 F 73 16 138/109 H 100 12/12/19 09:10 12/12/19 09:10 12/12/19 09:10 12/12/19 09:10 12/12/19 09:10 Course - Re-evaluation Re-evalutation: 12/12/19 11:04 Given the above history and physical examination, I will obtain basic labs, urine analysis, and reassess. I do believe discitis, epidural abscess, osteomyelitis, to be extremely unlikely. Patient is across the entire back with no history of kidney stones. I do believe an infected kidney stone to be unlikely. A cardiac panel was ordered in triage. Patient denies any and all complaints of chest discomfort on my examination. 12/12/19 11:09 EKG shows a heart of 68, normal sinus rhythm, normal axis, poor R wave progression, no obvious ST elevation. Inverted T wave in lead III. 12/12/19 14:49 Imaging, urine analysis, and labs as recorded. I have had the patient stand up with no weakness of the legs. No lower extremity edema. No incontinence. Patient still has no tenderness to palpation of the abdominal region. Patient points to bilateral lower back region as where the pain is located. No obvious urinary tract infection. Patient has been afebrile with no vomiting. Given the above history and physical with extensive work-up as recorded, I do not believe any further imaging or laboratory work is necessary at this time. Patient does follow orthopedics Dr. Guevara. Strict return precautions have been explained and the patient understands to follow-up instructions. She still denies any chest pain or shortness of breath on my exam. - Vital Signs Vital signs: Temp Pulse Resp BP Pulse Ox 97.8 F 73 16 138/109 H 100 12/12/19 09:10 12/12/19 09:10 12/12/19 09:10 12/12/19 09:10 12/12/19 09:10 - Laboratory Result Diagrams: 12/12/19 10:00 12/12/19 10:00 Laboratory results interpreted by me: 12/12/19 10:00 RDW 14.3 H Seg Neuts % (Manual) 26 L Lymphocytes % (Manual) 54 H Monocytes % (Manual) 18 H Abs Lymphs (Manual) 5.3 H Abs Monocytes (Manual) 1.8 H Discharge - Discharge Clinical Impression: Lower back pain Qualifiers: Chronicity: unspecified Back pain laterality: bilateral Sciatica presence: without sciatica Qualified Code(s): M54.5 - Low back pain Condition: Good Disposition: HOME, SELF-CARE Additional Instructions: Come back immediately for any increased pain, change in location or quality of pain, fevers or vomiting, weakness of the legs, incontinence, abdominal pain, or any other acute problems. Please follow-up with Dr. Guevara as we have discussed for further evaluation and treatment. Prescriptions: Hydrocodone/Acetaminophen [[place] 5-325 mg Tablet] 1 tab PO Q8 #10 tablet Referrals: GINETTE TEMPLE PA-C [Primary Care Provider] - Follow up as needed
[2019-12-12 11:13] LABS: ABSOLUTE LYMPHOCYTES# (MANUAL) 5.3 10^3/uL (0.5-4.7); ABSOLUTE MONOCYTES # (MANUAL) 1.8 10^3/uL (0.1-1.4); BASOPHILS % (MANUAL) 0 % (0-2); EOSINOPHILS % (MANUAL) 2 % (0-6); LYMPHOCYTES % (MANUAL) 54 % (13-45); MONOCYTES % (MANUAL) 18 % (3-13); SEGMENTED NEUTROPHILS % (MAN) 26 % (42-78); TOTAL CELLS COUNTED 100
[2019-12-12 11:14] LABS: ANISOCYTOSIS SLIGHT; OVALOCYTES SLIGHT; PLATELET COMMENT ADEQUATE
--- NOTE | 2019-12-12 13:23 | EKG REPORT ---
SEVERITY:- NORMAL ECG - SINUS RHYTHM : Confirmed by: Ramos Pang MD 12-Dec-2019 13:22:32
--- NOTE | 2019-12-12 13:54 | RADIOLOGY REPORT (SQ) ---
EXAM DESCRIPTION: CT ABD/PELVIS NO ORAL OR IV COMPLETED DATE/TIME: 12/12/2019 1:33 pm REASON FOR STUDY: 14; back pain radiating to abdomen COMPARISON: CT of the abdomen pelvis with contrast from 12/03/2017. TECHNIQUE: CT scan of the abdomen and pelvis performed without intravenous or oral contrast. Images reviewed with lung, soft tissue, and bone windows. Reconstructed coronal and sagittal MPR images revi ewed. All images stored on PACS. All CT scanners at this facility use dose modulation, iterative reconstruction, and/or weight based d osing when appropriate to reduce radiation dose to as low as reasonably achievable (ALARA). [facility]: Dose Right [facility]: CareDose [facility]: Dose Right [facility]: Teradose 4D [facility]: [employer] RADIATION DOSE: CT Rad equipment meets quality standard of care and radiation dose reduction techniq ues were employed. CTDIvol: 11.4 mGy. DLP: 654 mGy-cm. LIMITATIONS: None. FINDINGS: LOWER CHEST: Atherosclerotic calcification of the coronary arteries. There is no pericard ial effusion or cardiomegaly. There is no basilar consolidation or pleural effusion. NON-CONTRASTED LIVER, SPLEEN, ADRENALS: Evaluation is limited due to the absence of intravenous contr ast. The diffuse low attenuation hepatic parenchyma is consistent with hepatic steatosis. The splee n is normal in size. There is no adrenal mass P PANCREAS: No acute gross abnormality. GALLBLADDER: No abnormality that is apparent on CT. RIGHT KIDNEY AND URETER: Evaluation is limited due to the absence of intravenous contrast. There is no hydronephrosis, nephrolithiasis, hydroureter or ureterolithiasis. LEFT KIDNEY AND URETER: Evaluation is limited due to the absence of intravenous contrast. There is n o hydronephrosis, nephrolithiasis, hydroureter or ureterolithiasis. AORTA AND RETROPERITONEUM: No aneurysm of the abdominal aorta. No retroperitoneal adenopathy, hemorr hong or mass. Stable periaortic lymph nodes that measure up to 6 mm in short axis diameter. There is no retroperit lovelace hemorrhage or mass. BOWEL AND PERITONEAL CAVITY: Hiatal hernia. There is no bowel obstruction, bowel wall thickening or pericolonic/ perienteric inflammation. There is no mesenteric adenopathy, free intraperitoneal fluid or mesenteric/omental inflammation. APPENDIX: Unable to identify the appendix. PELVIS, BLADDER, AND ABDOMINAL WALL:Evaluation is limited due to the artifact from the hip prostheses . BONES: No acute findings. OTHER: No other finding. IMPRESSION: No acute intra-abdominal abnormality. COMMENT: Quality ID # 436: Final reports with documentation of one or more dose reduction techniques (e.g., Automated exposure control, adjustment of the mA and/or kV according to patient size, use of iterative reconstruction technique) TECHNICAL DOCUMENTATION: JOB ID: [id number] 2010 [employer]- All Rights Reserved Reading location - IP/workstation name: [email or web address]
[2019-12-12 15:22] VITALS: BP 135/60
== END 2019-12-12 15:22 | disposition home or self-care (01) ==
LOC: ER 09:03
DX: M54.5 Low back pain (principal); R19.7 Diarrhea, unspecified; R30.0 Dysuria; R32 Unspecified urinary incontinence; R35.0 Frequency of micturition; R10.817 Generalized abdominal tenderness; I25.10 Atherosclerotic heart disease of native coronary artery without angina pectoris; E78.00 Pure hypercholesterolemia, unspecified; I10 Essential (primary) hypertension; E11.9 Type 2 diabetes mellitus without complications; Z96.643 Presence of artificial hip joint, bilateral
CPT/HCPCS: 36415; 71046; 74176; 80053; 81001; 84484; 85025; 93005; 93010; 99284; S0119

== ENCOUNTER → 2020-07-03 | Outpatient (CLI) | payer MEDICARE, OTHER ==
--- NOTE | 2020-07-03 11:00 | WOMENS IMAGING REPORT ---
EXAM DESCRIPTION: BILAT SCREENING MAMMO W/CAD IMAGES COMPLETED DATE/TIME: 07/03/2020 10:06 am REASON FOR STUDY: BILATERAL SCREENING Z12.31 Z12.31 ENCNTR SCREEN MAMMOGRAM FOR MALIGNANT NEOPLASM OF MELISSA COMPARISON: 07/01/2019 and 06/03/2018. EXAM PARAMETERS: Standard craniocaudal and mediolateral oblique views of each breast recorded using digital acquisition. Read with the assistance of CAD. .[facility] - [employer] Version 9.2 LIMITATIONS: None. FINDINGS: No suspicious masses, suspicious calcifications or architectural distortion. No areas of c oncern. IMPRESSION: NEGATIVE MAMMOGRAM. BIRADS 1 BREAST DENSITY: b. There are scattered areas of fibroglandular density. BIRAD: ASSESSMENT: 1 NEGATIVE RECOMMENDATION: ROUTINE SCREENING COMMENT: The patient has been notified of the results by letter per MQSA requirements. Additional no tification policies are in place for contacting patient with suspicious or incomplete findings. Quality ID #[id number]: The [employer] recommends an annual screening mammogram for women aged 40 years or over. This facility utilizes a reminder system to ensure that all patients receive reminder letters, and/or direct phone calls for appointments. This includes reminders for routine scr eening mammograms, diagnostic mammograms, or other Breast Imaging Interventions when appropriate. Th is patient will be placed in the appropriate reminder system. TECHNICAL DOCUMENTATION: FINDING NUMBER: (1) ASSESSMENT: (1) JOB ID: [id number] 2010 [email or web address]- All Rights Reserved Reading location - IP/workstation name: [email or web address]
== END ==
LOC: WI 14:21
PROVIDERS: ATTEND Physician Assistant
DX: Z12.31 Encounter for screening mammogram for malignant neoplasm of breast (principal)
CPT/HCPCS: 77067

== ENCOUNTER → 2020-07-25 | Outpatient (CLI) | payer MEDICARE, OTHER ==
--- NOTE | 2020-07-25 09:50 | RADIOLOGY REPORT (SQ) ---
EXAM DESCRIPTION: CT ABD/PELVIS WITH IV ORAL IMAGES COMPLETED DATE/TIME: 07/25/2020 8:21 am REASON FOR STUDY: C91.10 CHRONIC LYMPHOCYTIC LEUK OF B-CELL TYPE NOT ACHIEVE REMIS C91.10 CHRONIC L YMPHOCYTIC LEUK OF B-CELL TYPE NOT ACHIEVE R COMPARISON: 12/12/2019, 12/03/2017 TECHNIQUE: CT scan of the abdomen and pelvis performed using helical scanning technique with dynamic intravenous contrast injection. No oral contrast. Images reviewed with lung, soft tissue, and bone windows. Reconstructed coronal and sagittal MPR images reviewed. Delayed images for evaluation of the urinary system also acquired. All images stored on PACS. All CT scanners at this facility use dose modulation, iterative reconstruction, and/or weight based d osing when appropriate to reduce radiation dose to as low as reasonably achievable (ALARA). [facility]: Dose Right [facility]: CareDose [facility]: Dose Right [facility]: Teradose 4D [facility]: [employer] CONTRAST TYPE AND DOSE: contrast/concentration: Isovue 350.00 mmol/ml; Total Contrast Delivered: 90. 0 ml; Total Saline Delivered: 40.0 ml RENAL FUNCTION: Creatinine 0.7 RADIATION DOSE: CT Rad equipment meets quality standard of care and radiation dose reduction techniq ues were employed. CTDIvol: 6.9 - 6.9 mGy. DLP: 708 mGy-cm.. LIMITATIONS: None. FINDINGS: LOWER CHEST: No significant findings. No nodules or infiltrates. LIVER: Normal size. No masses. No dilated ducts. SPLEEN: 5 a 6 mm lesion in the spleen which is hypoattenuating on initial image. Delayed images this small lesion is ice 0 10 Yueh being this most likely represents hemangioma. PANCREAS: No masses. No significant calcifications. No adjacent inflammation or peripancreatic fluid collections. Pancreatic duct not dilated. GALLBLADDER: No identified stones by CT criteria. No inflammatory changes to suggest cholecystitis. ADRENAL GLANDS: No significant masses or asymmetry. RIGHT KIDNEY AND URETER: No solid masses. No significant calcifications. No hydronephrosis or hyd roureter. LEFT KIDNEY AND URETER: No solid masses. No significant calcifications. No hydronephrosis or hydr oureter. AORTA AND VESSELS: No aneurysm. No dissection. Renal arteries, SMA, celiac without stenosis. RETROPERITONEUM: Small stable retroperitoneal nodes. The largest measures approximately 14 mm. BOWEL AND PERITONEAL CAVITY: No masses or inflammatory changes. No free fluid or peritoneal masses. APPENDIX: Not visualized. PELVIS: No mass. No free fluid. Normal bladder. ABDOMINAL WALL: No masses. No hernias. BONES: Degenerative changes in the lumbar spine. OTHER: Small stable hiatal hernia. IMPRESSION: Stable CT abdomen and pelvis. Small stable retroperitoneal lymph nodes. TECHNICAL DOCUMENTATION: JOB ID: [id number] Quality ID # 436: Final reports with documentation of one or more dose reduction techniques (e.g., Au tomated exposure control, adjustment of the mA and/or kV according to patient size, use of iterative reconstruction technique) 2010 [employer]- All Rights Reserved Reading location - IP/workstation name: [email or web address]
== END ==
LOC: RAD 07:41
PROVIDERS: ATTEND Physician Assistant Medical
DX: C91.10 Chronic lymphocytic leukemia of B-cell type not having achieved remission (principal); K44.9 Diaphragmatic hernia without obstruction or gangrene
CPT/HCPCS: 74177; 82565

== ENCOUNTER → 2020-11-07 | Outpatient (CLI) | payer MEDICARE, OTHER ==
[2020-11-07 10:33] LABS: TRIGLYCERIDES 146 mg/dL (<150)
[2020-11-07 10:44] LABS: DIRECT LDL 84 mg/dL (<100)
== END ==
LOC: OD 09:24
PROVIDERS: ATTEND Internal Medicine Cardiovascular Disease
DX: E78.2 Mixed hyperlipidemia (principal); Z79.899 Other long term (current) drug therapy
CPT/HCPCS: 36415; 80061